=== PATIENT | female | born 1995 | race Caucasian/White ===

== ENCOUNTER → 2023-01-19 09:57 | Outpatient (BNVA) | payer MEDICAID, SELFPAY | PROVIDERS: Family Provider Family Medicine; PCP Nurse Practitioner; Visit Provider Nurse Practitioner Women's Health | DX: O09.899 Supervision of other high risk pregnancies, unspecified trimester (principal); Z32.00 Encounter for pregnancy test, result unknown | CPT/HCPCS: 80307; 81025; 85027; 86592; 86762; 86803; 86850; 86900; 87086; 87340; 87522; 87806 ==

== ENCOUNTER → 2023-02-02 09:19 | Outpatient (BNVA) | payer MEDICAID, SELFPAY | PROVIDERS: Family Provider Family Medicine; PCP Nurse Practitioner; Visit Provider Obstetrics & Gynecology | DX: O09.899 Supervision of other high risk pregnancies, unspecified trimester (principal); R76.8 Other specified abnormal immunological findings in serum; Z36.87 Encounter for antenatal screening for uncertain dates; Z3A.15 15 weeks gestation of pregnancy | CPT/HCPCS: 76815; 81000; 86803; 87522 ==

== ENCOUNTER → 2023-03-02 08:09 | Outpatient (BNVA) | payer MEDICAID, SELFPAY | PROVIDERS: Family Provider Family Medicine; PCP Nurse Practitioner; Visit Provider Obstetrics & Gynecology | DX: O09.899 Supervision of other high risk pregnancies, unspecified trimester (principal) | CPT/HCPCS: 81000 ==

== ENCOUNTER → 2023-03-11 09:31 | Outpatient (BNVA) | payer MEDICAID, SELFPAY | PROVIDERS: Family Provider Family Medicine; PCP Nurse Practitioner; Visit Provider Obstetrics & Gynecology | DX: Z36.2 Encounter for other antenatal screening follow-up (principal) | CPT/HCPCS: 76805 ==

== ENCOUNTER → 2023-03-22 08:00 | Outpatient (BNVA) | payer MEDICAID, SELFPAY | PROVIDERS: Family Provider Family Medicine; PCP Nurse Practitioner; Visit Provider Obstetrics & Gynecology | DX: O09.899 Supervision of other high risk pregnancies, unspecified trimester (principal); Z3A.00 Weeks of gestation of pregnancy not specified | CPT/HCPCS: 81000 ==

== ENCOUNTER → 2023-05-04 09:36 | Outpatient (BNVA) | payer MEDICAID, SELFPAY | PROVIDERS: Family Provider Family Medicine; PCP Nurse Practitioner; Visit Provider Obstetrics & Gynecology | DX: O09.899 Supervision of other high risk pregnancies, unspecified trimester (principal) | CPT/HCPCS: 81000; 82950; 85025 ==

== ENCOUNTER 2023-05-18 09:35 | Outpatient (CLI) | payer MEDICAID, SELFPAY ==
[2023-05-18 09:51] VITALS: BMI 31.1
[2023-05-18] MEDS: betamethasone susp 6 mg/mL 1 mL (per mL) 12 MG IM (10:50)
[2023-05-18 11:22] VITALS: PULSE 70
== END 2023-05-18 11:38 | disposition home or self-care (01) ==
LOC: OPOB 09:40 → OBGYN 09:40
PROVIDERS: Family Provider Family Medicine; PCP Nurse Practitioner; Visit Provider Obstetrics & Gynecology
DX: O26.899 Other specified pregnancy related conditions, unspecified trimester (principal); Z3A.00 Weeks of gestation of pregnancy not specified
CPT/HCPCS: 36415; 81000; 86850; 86900; 90384; 96372; 99211; J0702

== ENCOUNTER 2023-05-19 12:39 | Outpatient (CLI) | payer MEDICAID, SELFPAY ==
[2023-05-19] MEDS: betamethasone susp 6 mg/mL 1 mL (per mL) 12 MG IM (12:55)
== END 2023-05-19 13:00 | disposition home or self-care (01) ==
LOC: OPOB 12:40
PROVIDERS: Family Provider Family Medicine; PCP Nurse Practitioner; Visit Provider Obstetrics & Gynecology
DX: O26.899 Other specified pregnancy related conditions, unspecified trimester (principal); Z3A.00 Weeks of gestation of pregnancy not specified
CPT/HCPCS: 96372; J0702

== ENCOUNTER → 2023-06-16 09:00 | Outpatient (BNVA) | payer MEDICAID, SELFPAY | PROVIDERS: Family Provider Family Medicine; PCP Nurse Practitioner; Visit Provider Nurse Practitioner Women's Health | DX: O09.899 Supervision of other high risk pregnancies, unspecified trimester (principal); Z3A.34 34 weeks gestation of pregnancy | CPT/HCPCS: 81000; 87491; 87591 ==

== ENCOUNTER → 2023-07-13 09:04 | Outpatient (BNVA) | payer MEDICAID, SELFPAY | PROVIDERS: Family Provider Family Medicine; PCP Nurse Practitioner; Visit Provider Obstetrics & Gynecology | DX: O09.899 Supervision of other high risk pregnancies, unspecified trimester (principal) | CPT/HCPCS: 81000; 87081 ==

== ENCOUNTER → 2023-07-20 13:24 | Outpatient (BNVA) | payer MEDICAID, SELFPAY | PROVIDERS: Family Provider Family Medicine; PCP Nurse Practitioner; Visit Provider Obstetrics & Gynecology | DX: O09.899 Supervision of other high risk pregnancies, unspecified trimester (principal) | CPT/HCPCS: 81000 ==

== ENCOUNTER → 2024-01-12 14:56 | Outpatient (BNVA) | payer MEDICAID, SELFPAY | PROVIDERS: Family Provider Family Medicine; PCP Nurse Practitioner; Visit Provider Obstetrics & Gynecology | DX: Z01.419 Encounter for gynecological examination (general) (routine) without abnormal findings (principal) | CPT/HCPCS: 87624 ==

== ENCOUNTER 2024-02-03 05:49 | Day surgery (SDC) | payer MEDICAID, SELFPAY ==
--- NOTE | 2024-02-02 21:46 | P.HP_ITS ---
Same Day Surgery H&P Indication for Procedure/HPI DATE OF PROCEDURE: February 02, 2024 CHIEF COMPLAINT/INDICATIONFOR SURGICAL PROCEDURE: desires permanent sterilization PREOP DIAGNOSIS: desires permanent sterilization PLANNED PROCEDURE: Operation Date: 02/03/24 07:00 Proposed Procedures p Laparoscopic Bilateral Partial Salpingectomy 05440, Z30.2(Bilateral) - Skip Woods MD 28 y.o. A1 desires permanent sterilization Medications/Allergies* Home Medications 3 Medication Instructions Recorded Confirmed Type vitamin no.102-iron 90 1 cap PO DAILY 01/19/23 02/01/24 History mg-folate 1 mg-dha 200 mg capsule epinephrine 0.125 mg/actuation 1 puff inhalation Q4H PRN 02/01/24 02/01/24 History aerosol inhaler (Primatene Mist) Shortness Of Breath Allergies/Adverse Reactions Allergy/AdvReac Type Severity Reaction Status Date / Time No Known Allergies Allergy Verified 01/12/24 10:50 Pertinent History/Comorbid Conditions* Medical History (Updated 01/08/24 @ 14:45 by Skip Woods MD) No pertinent past medical history Neghx: htn,dm,thyroid,dvt/pe PCP: [facility] (Updated 01/19/23 @ 10:31 by Fifi Zambrano APN, BLAKE) H/O dilation and curettage at 15 weeks-- ended up needing D&C here at [facility] Family History (Updated 01/19/23 @ 10:04 by Lissette Marquez LPN) Denies family history of Cervical cancer Ovarian cancer Diabetes Heart disease Hyperlipidemia Breast cancer Hypertension Uterine cancer Thyroid disease Stroke Social History Smoking and tobacco/nicotine status: former use of tobacco/nicotine Pertinent Exam Findings alert, oriented x 3, clear to auscultation bilaterally and regular rate & rhythm Recommendations Surgery/Procedure today Coding Level of Care Code Acute Code for Chg Fwd Time Spent (min) 20
[2024-02-03] VITALS (12 sets, daily range): BP systolic 107–134; BP diastolic 64–84; PULSE 54–90; RESP 14–18; TEMP 36.1–36.5; O2SAT 96–100; BMI 27.1
[2024-02-03 06:19] LABS: OR HCG Qualitative Urine Negative (Negative)
[2024-02-03] MEDS: sodium chloride 0.9% 1,000 ML 30 ML IV (06:34)
--- NOTE | 2024-02-03 06:39 | ANES.PREANE2 ---
Pre-Anesthetic Assessment Height/Weight: Height 1.6 m Weight 69.4 kg Temp Pulse Resp BP Pulse Ox O2 Del Method 97.0 F L 65 16 119/75 100 Room Air 02/03/24 06:14 02/03/24 06:14 02/03/24 06:14 02/03/24 06:14 02/03/24 06:14 02/03/24 06:14 Preop Diagnosis: desires permanent sterilization Operation Date: 02/03/24 07:00 Proposed Procedures p Laparoscopic Bilateral Partial Salpingectomy 32611, Z30.2(Bilateral) - Skip Woods MD Familial anesthetic complications: None Was Beta Elma taken within 24 hours: N/A Was Clonidine taken within 24 hours: N/A Last intake: Intake Last Liquid Date 02/02/24 Last Liquid Time 22:00 Last Solid Date 02/02/24 Last Solid Time 22:00 Social Tobacco (vapes) and No alcohol Marijuana Exam alert, oriented x 3, clear to auscultation bilaterally and regular rate & rhythm Airway Mallampati: Class I Dentition: other (cavities) Pulmonary Asthma (states takes OTC epi inhaler) Hepatic hep C antibody positive in medical chart Anesthetic Plan ASA status: 2 Anesthesia: General Risk of > 500 ml blood loss (7ml/kg in children): No Medications/Allergies Home Medications Medication Instructions Recorded Confirmed Last Taken Type vitamin no.102-iron 90 1 cap PO DAILY 01/19/23 02/03/24 05/17/23 20:00 History mg-folate 1 mg-dha 200 mg capsule epinephrine 0.125 mg/actuation 1 puff inhalation Q4H PRN 02/01/24 02/03/24 02/02/24 History aerosol inhaler (Primatene Mist) Shortness Of Breath Allergies Allergy/AdvReac Type Severity Reaction Status Date / Time No Known Allergies Allergy Verified 01/12/24 10:50 Current Medications Generic Name Dose Route Start Last Admin Trade Name Freq PRN Reason Stop Dose Admin Sodium Chloride 1,000 mls @ 30 mls/hr 02/03/24 06:15 02/03/24 06:34 Sodium Chloride 0.9% IV 02/04/24 06:14 30 mls/hr .Q24H JOI Administration PFSH Anesthesia Medical History No pertinent past medical history Neghx: htn,dm,thyroid,dvt/pe PCP: [facility] H/O dilation and curettage at 15 weeks-- ended up needing D&C here at [facility] Family History Denies family history of Cervical cancer Ovarian cancer Diabetes Heart disease Hyperlipidemia Breast cancer Hypertension Uterine cancer Thyroid disease Stroke Social History Smoking and tobacco/nicotine status: former use of tobacco/nicotine Female Reproductive History Date of last menstrual period: 12/06/23 Data Anesthesia Cardiac Studies: No Data to Display
--- NOTE | 2024-02-03 06:55 | W.PM.OPSUD ---
Surgery/Procedure H&P Update DATE OF PROCEDURE: February 03, 2024 DATE H&P PERFORMED: 02/02/24 H&P UPDATE INFORMATION: I have reviewed H&P completed within last 30 days, I have examined patient prior to procedure and No changes to prior documentation PREOP DIAGNOSIS: desires permanent sterilization PLANNED PROCEDURE: Operation Date: 02/03/24 07:00 Proposed Procedures p Laparoscopic Bilateral Partial Salpingectomy 12392, Z30.2(Bilateral) - Skip Woods MD
[2024-02-03] MEDS: ibuprofen 800 mg tablet PO (09:08)
--- NOTE | 2024-02-03 09:15 | ANE.PACU2 ---
Inpatient post-anesthesia follow up: Airway intact: Yes Vital signs: Temperature 97.1 F Pulse Rate 54 Respiratory Rate 18 Blood Pressure 107/64 Pulse Oximetry 100 Oxygen Delivery Me thod Room Air Oxygen Flow Rate Fraction of Inspir ed Oxygen Hydration adequate: Yes Nausea and vomiting: No Pain level: 1 Mental status: Baseline
--- NOTE | 2024-02-03 09:15 | P.OP_ITS ---
Operative Report Date of procedure: February 03, 2024 Pre-op diagnosis: desires permanent sterilization Post-op diagnosis: same Post-op findings: normal uterus, tubes, and ovaries Procedure done: laparoscopic bilateral partial salpingectomy Implants: none Specimens removed/disposition: bilateral partial fallopian tube segments Surgeon: Skip Woods MD Anesthesia: General Estimated blood loss (mL): 5 Complications: none Findings: normal uterus, tubes, and ovaries Condition: stable Disposition: PACU Brief History: 28 y.o. desires permanent sterilization Procedure: Informed consent was obtained. The patient was taken to the OR and placed on the table. General endotracheal anesthesia was induced. The patient was then placed in dorsolithotomy position. The abdomen and perineum were then prepped and draped in the usual fashion. A 5 mm subumbilical skin incision was made. A 5 mm trocar with sheath was then inserted into the peritoneal cavity under direct visualization with the laparoscope. After confirming intraperitoneal position, pneumoperitoneum was achieved. Two separate 5 mm incisions were made in the right and left mid- quadrants. 5 mm trocars with sheaths were then inserted into the peritoneal cavity under direct visualization with the laparoscope. The right fallopian tube was then identified to its fimbrial end. Starting at the fimbrial end, the mesosalpinx was then coagulated and cut using the Ligasure device. A 3-4 cm portion of the right fallopian tube was excised and removed via one of the ports. This was sent to pathology. There was no bleeding seen. Similarly, the left fallopian tube was identified to its fimbrial end. A 3-4 cm portion of the left fallopian tube was excised and removed, sent to pathology. There was no bleeding. All instruments were then removed from the peritoneal cavity after the pneumoperitoneum was allowed to escape. The skin incisions were closed using 3- O chromic in subcuticular fashion. Dermabond was applied. The patient was then placed supine and awakened, taken the the PACU in good condition. Postop condition: stable EBL: 5 cc Complications: none Sponge, needles, and instruments counts correct x two
== END 2024-02-03 09:15 | disposition home or self-care (01) ==
PROVIDERS: Anesthesiology; Family Provider Family Medicine; PCP Nurse Practitioner; Visit Provider Obstetrics & Gynecology
PROC: (CPT 58661; principal; 2024-02-03 07:00)
DX: Z30.2 Encounter for sterilization (principal); F17.290 Nicotine dependence, other tobacco product, uncomplicated; J45.909 Unspecified asthma, uncomplicated; Z86.19 Personal history of other infectious and parasitic diseases
CPT/HCPCS: 58661; 81025; 88302; J0330; J1100; J1200; J2250; J2405; J2704; J2710; J3010; J3490; J7030